=== PATIENT | male | born 1955 | race Caucasian/White ===

== ENCOUNTER → 2023-09-02 13:36 | Outpatient (REF) | payer BC, SELFPAY | LOC: RAD 13:36 | PROVIDERS: ATTENDING PHYSICIAN Specialist; FAMILY PHYSICIAN Internal Medicine | DX: M25.561 Pain in right knee (principal) | CPT/HCPCS: 73560; 73565 ==

== ENCOUNTER 2024-01-28 15:40 | Emergency (ER) | payer BC, SELFPAY ==
[2024-01-28 15:44] VITALS: BP 126/72
[2024-01-28 16:13] VITALS: BMI 24.8
[2024-01-28 16:14] LABS: % Basophils 0.7 % (0-2); % Eosinophils 0.4 % (0-6); % Immature Granulocytes 0.9 % (0-0.5); % Lymphocytes 10.6 % (20.5-51.1); % Monocytes 5.6 % (1.7-9.3); % Neutrophils 81.8 % (42.2-75.2); Absolute Basophils 0.1 10^3/uL (0-0.2); Absolute Immature Granulocytes 0.1 10^3/uL (0-0.05); Absolute Monocytes 0.5 10^3/uL (0.1-0.6); Absolute Neutrophils 7.5 10^3/uL (1.4-6.5); Hematocrit 47.7 % (39.0-52.0); Mean Corp Hgb Conc. 35.6 g/dL (33.0-37.0); Mean Corpuscular Hgb 30.5 pg (27.0-31.0); Mean Corpuscular Volume 85.6 fL (80.0-94.0); Mean Platelet Volume 8.6 fL (7.4-10.4); Nucleated Red Blood Cells % 0 % (-); Platelet Count 633 10^3/uL (130-400); Red Blood Cell Count 5.57 10^6/uL (4.70-6.10); Red Cell Dist. Width 12.8 % (11.5-14.5); White Blood Cell Count 9.2 10^3/uL (4.8-10.8)
[2024-01-28 16:16] VITALS: BP 126/79
[2024-01-28 16:17] VITALS: BP 126/79
[2024-01-28 16:26] LABS: ALT (SGPT) 35 U/L (0-50); AST (SGOT) 27 U/L (17-59); Albumin 4.4 g/dl (3.5-5.0); Alkaline Phosphatase 71 U/L (38-126); Blood Urea Nitrogen 22 mg/dl (9-20); Calcium 9.9 mg/dl (8.4-10.2); Carbon Dioxide 24 mmol/L (22-30); Chloride 107 mmol/L (98-107); Estimated Creatinine Clearance 50 ml/min; Glucose 125 mg/dl (70-99); Potassium 4.9 mmol/L (3.5-5.1); Sodium 138 mmol/L (135-145); Total Protein 6.9 g/dl (6.3-8.2); eGFR 49.77
[2024-01-28 16:33] LABS: Troponin I 0.014 ng/ml
[2024-01-28 17:16] VITALS: BP 124/81
--- NOTE | 2024-01-28 17:43 | ED.GENMED ---
History of Present Illness
General
Chief Complaint: Change Level of Consciousness
Source: patient and spouse
Exam Limitations: none
Time Seen by Provider: 01/28/24 16:33
Nursing documentation reviewed up to this point in time: agreed with
History of Present Illness
History of Present Illness:
Patient presents to ED secondary to sudden onset of generalized shaking, along with mental status change, while in sitting position, witnessed by his spouse. Per spouse, they had just returned from biking 8 miles. He had sat down on a couch with a
computer, when he made 'snorting' noise, followed by flaring of his arms and legs, and not responding to any family members. Shaking behavior lasted approximately 20 to 30 seconds, with spontaneous resolution. Afterwards, took another 2 minutes
before patient started to talk to his family. Patient however, at that time appeared pale and somewhat confused. Prior to aforementioned symptoms, patient does admit to feeling 'nauseous'. Otherwise, patient is healthy without any significant
medical history. Patient does not take any medications daily. Denies tongue biting or urinary/bowel incontinence. Denies recent illness. Denies recent change in diet. Denies recent weight loss. Patient does report eating breakfast and drinking
enough water during bike ride. Denies previous history of similar symptoms.
Past History
Past History
ED Past Medical History: None; Negative IDDM
ED Past Surgical History: Orthopedic (L3-L4 discectomy, knee surgeries) and Tonsilectomy; Negative Cardiac
Social History
Tobacco: Non-smoker
Alcohol: None
Drug: None
Personal:
Living: with family
Employment: Employed
Family History
Family History: Other (Noncontributory)
Review of Systems
Review of Systems
Allergies reviewed?: Yes
Constitutional: Reports no symptoms
EENT: Reports no symptoms
Respiratory: Reports no symptoms
Cardiac: Reports no symptoms
ABD/GI: Reports nausea
: Reports no symptoms
Musculoskeletal: Reports no symptoms
Skin: Reports no symptoms
Neurological: Reports other (Mental status change with seizure-like activity)
Phy Exam
Physical Exam
Physical Exam:
Physical Exam
General: no apparent distress, not acutely ill. afebrile
Head: nc/at. eomi
Neck: supple. no meningeal signs.
Heart: s1/s2 regular rate and rhythm, no murmur. equal radial pulses.
Lungs: no acute respiratory distress. clear bilaterally
Abdomen: normal bowel sounds. not tender.
Neuro: alert and oriented. no focal neurological deficits
Skin: no rash
Psychiatric: well kept. interactive and cooperative
Extremities: no edema. no calf tenderness.
Course
Orders/Labs/Results
Orders:
Orders
01/28/24 15:46
ECG [Electrocardiogram (*1)] Urgent
Reason for Study: Syncope
EKG- Treatment ONCE
01/28/24 15:58
Complete Blood Count/With Diff Urgent
Comprehensive Metabolic Panel Urgent
Troponin I Urgent
01/28/24 16:36
CT Head W/o Iv Contrast Urgent
Comment:
Reason For Exam: mental status change with sz like activity
Abnormal Lab Results
01/28/24
15:58
Plt Count 633 H 10^3/uL
(130-400)
Abs Immat Gran (auto) 0.1 H 10^3/uL
(0-0.05)
Absolute Neuts (auto) 7.5 H 10^3/uL
(1.4-6.5)
Absolute Lymphs (auto) 1.0 L 10^3/uL
(1.2-3.4)
Immature Gran % 0.9 H %
(0-0.5)
Neutrophils % 81.8 H %
(42.2-75.2)
Lymphocytes % 10.6 L %
(20.5-51.1)
BUN 22 H mg/dl
(9-20)
Creatinine 1.5 H mg/dL
(0.7-1.3)
Glucose 125 H mg/dl
(70-99)
01/28/24 15:58
01/28/24 15:58
Vital Signs
Initial and Last Documented VS:
Initial Vital Signs
Temp Pulse Resp BP Pulse Ox
98.1 F 74 16 126/72 95
01/28/24 15:44 01/28/24 15:44 01/28/24 15:44 01/28/24 15:44 01/28/24 15:44
Last Documented Vital Signs
Temp Pulse Resp BP Pulse Ox
98.1 F 62 18 116/74 97
01/28/24 15:44 01/28/24 18:39 01/28/24 18:39 01/28/24 18:38 01/28/24 18:38
MDM/Problems Addressed
MDM/Problems Addressed:
CT head: NAD.
History and exam concerning for potential new onset seizure. Discussed with on-call neurologist, Dr. Vivar. Does not recommend starting patient on any seizure medications at this time, as this is his first episode of seizure-like episode. In
addition, does not recommend suspending patient's driving license at this time. Feels that patient can be discharged home for an outpatient evaluation in his office. Advised patient to call neurology office on Tuesday, at which point outpatient EEG
and MRI brain will be arranged. Afterwards, patient will follow-up with Dr. Vivar or one of his colleagues for an outpatient consultation.
Patient and spouse expressed understanding at time of discharge.
*Critical Care Note
Total Time (30-74mins, 75-104mins- exclusive of procedures): Not Applicable
ED Attending Note
-
Portions of this chart may have been created with voice recognition software.� Occasional wrong word or��sound alike� substitutions may have occurred due to the inherent limitations of voice recognition software.
Discharge Plan
Departure
Patient Disposition: Home (Routine Discharge)
Date of Disposition: 01/28/24
Time of Disposition: 18:36
Patient with high blood pressure during this ER visit?: Yes
Condition: Fair
Discharge Problem:
Seizure
Instructions: Seizures, Adult ED
Prescriptions:
No Action
melatonin 10 MG capsule
10 mg PO HS
pentoxifylline 400 MG tablet extended release
400 mg PO PRN PRN (Reason: erectile dysfunction)
famotidine-Ca carb-mag hydrox [Pepcid Complete] 1 EACH tablet,chewable
1 ea PO PRN PRN (Reason: GERD)
Referrals:
Jax Vivar MD [Active] -
Tr Skaggs MD [Family Provider] -
Activity Restrictions/Additional Instructions:
As discussed, please follow-up with referred neurologist for further evaluation and treatment.
Interventions
Interventions:
*Risk Screen - Suicide Last Done: 01/28/24 16:17
*General Assessment Last Done: 01/28/24 16:17
*Neglect/Abuse Screening Last Done: 01/28/24 16:17
*ED COVID-19 Vaccine History Last Done: 01/28/24 16:17
*Nursing Disposition Last Done: 01/28/24 18:51
ED- Cardiac Assessment Last Done: 01/28/24 16:21
ED- Neurological Assessment Last Done: 01/28/24 16:21
ED-Psychological Assessment Last Done: 01/28/24 16:21
ED- Pulmonary Assessment Last Done: 01/28/24 16:21
Discharge Date and Time
Discharge Date/Time: 01/28/24 18:56
Print Language: TOGOLESE
[2024-01-28 18:00] VITALS: BP 103/62
[2024-01-28 18:38] VITALS: BP 116/74
== END 2024-01-28 18:56 | disposition home or self-care (01) ==
LOC: EMR 15:40
PROVIDERS: EMERGENCY PHYSICIAN Emergency Medicine; FAMILY PHYSICIAN Internal Medicine
DX: R56.9 Unspecified convulsions (principal)
CPT/HCPCS: 99284; 70450; 80053; 84484; 85025; 93005

== ENCOUNTER → 2024-02-03 08:47 | Outpatient (REF) | payer BC, SELFPAY ==
--- NOTE | 2024-02-03 11:09 | EEG.RPT ---
Electroencephalogram Report
Recording
Date of EE02/03/24
Type of EEG: Routine
Length of EEG recordin minutes
Done with Video Recording: Yes
Patient Status: Outpatient
Recording Conditions: Awake and Drowsy
Hyperventilation Performed: Yes
Photic Stimulation Performed: Yes
Report
LESS THAN 1 HOUR EEG REPORT
EEG INTERPRETATION:
Unremarkable EEG for age
CLINICAL CORRELATION:
A normal EEG does not rule out a diagnosis of epilepsy. If clinical suspicion for seizure persists, a prolonged recording may be warranted.
Clinical correlation is advised.
METHODS:
A 21 channel digitized electroencephalogram (EEG) was performed in the [facility]. The 10/20 international system of electrode placement was used with ECG and lateral/vertical eye movements recorded. Persyst quantitative EEG
analysis was performed.
ELECTROENCEPHALOGRAPHER IMPRESSION(S):
Quality of study
Good
Background
Unremarkable, well maintained, medium amplitude alpha-frequency and unremarkable anterior-posterior voltage gradient
With eye opening the background activity changed to a low voltage mixture of frequencies.
Sleep
Drowsiness present
Hyperventilation
Did not activate the record
Photic Stimulation
Did not activate the record
ECG
Normal sinus rhythm
== END ==
LOC: EEG 08:47
PROVIDERS: ATTENDING PHYSICIAN Internal Medicine
DX: R56.9 Unspecified convulsions (principal); R53.83 Other fatigue; R41.3 Other amnesia; N28.9 Disorder of kidney and ureter, unspecified
CPT/HCPCS: 95816

== ENCOUNTER → 2024-03-01 09:15 | Outpatient (REF) | payer BC, SELFPAY ==
--- NOTE | 2024-03-02 15:43 | EEG.RPT ---
Electroencephalogram Report
Recording
Date of EE03/01/24
Type of EEG: Ambulatory
Length of EEG recordin hours 4 minutes
Done with Video Recording: No
Patient Status: Outpatient
Recording Conditions: Awake, Drowsy and Asleep
Hyperventilation Performed: Yes
Photic Stimulation Performed: Yes
Report
24 HOUR AMBULATORY EEG SUMMARY
24 HOUR AMBULATORY EEG CONCLUSION(S):
Unremarkable EEG for age
CLINICAL CORRELATION:
A normal EEG may not rule out a diagnosis of epilepsy.
Consideration for multiple day monitoring may be given.
Clinical correlation is advised.
METHODS:
A 21 channel digitized electroencephalogram (EEG) was initiated in the [facility]. The patient wore the device outside of the laboratory and returned after 24 hours for electrode and recorder removal. The 10/20
international system of electrode placement was used with bipolar electrode montage recorded. ECG was monitored. The [employer] quantitative EEG analysis system was utilized.
IMPRESSION(S):
Quality
Fair becoming poor by end of study
Background
Maximal wakefulness: alpha
There was a normal anterior-posterior voltage gradient. With eye opening the background activity changed. No significant asymmetries of background activity noted.
Sleep
Drowsiness was suggested by slowing of the background rhythms
Stage I sleep was recorded
Stage 2 sleep was recorded
Hyperventilation
Failed to produce activation of the record
Photic stimulation
Failed to produce activation of the record
ECG
Unremarkable
== END ==
LOC: EEG 09:15
PROVIDERS: ATTENDING PHYSICIAN Psychiatry & Neurology Neurology; FAMILY PHYSICIAN Internal Medicine
DX: G40.309 Generalized idiopathic epilepsy and epileptic syndromes, not intractable, without status epilepticus (principal)
CPT/HCPCS: 95700; 95714

== ENCOUNTER → 2024-04-19 18:09 | Outpatient (REF) | payer BC, SELFPAY | LOC: MRI 3T 18:09 | PROVIDERS: ATTENDING PHYSICIAN Psychiatry & Neurology Neurology; FAMILY PHYSICIAN Internal Medicine | DX: G40.309 Generalized idiopathic epilepsy and epileptic syndromes, not intractable, without status epilepticus (principal); R56.9 Unspecified convulsions | CPT/HCPCS: 70553; A9575 ==

== ENCOUNTER → 2024-08-10 08:32 | Outpatient (REF) | payer BC, SELFPAY | LOC: MRI 3T 08:32 | PROVIDERS: ATTENDING PHYSICIAN Physician Assistant Medical; FAMILY PHYSICIAN Internal Medicine | DX: N40.1 Benign prostatic hyperplasia with lower urinary tract symptoms (principal); R39.12 Poor urinary stream; R97.20 Elevated prostate specific antigen [PSA] | CPT/HCPCS: 72197; A9575 ==

== ENCOUNTER 2025-04-12 06:12 | Day surgery (SDC) | payer BC, SELFPAY ==
[2025-02-11 07:11] LABS: Hematocrit 43.3 % (39.0-52.0); Hemoglobin 15.3 g/dL (13.0-18.0); Mean Corp Hgb Conc. 35.3 g/dL (33.0-37.0); Mean Corpuscular Volume 86.8 fL (80.0-94.0); Platelet Count 451 10^3/uL (130-400); Red Cell Dist. Width 13.0 % (11.5-14.5)
[2025-02-11 07:37] LABS: Blood Urea Nitrogen 20 mg/dl (9-20); Calcium 9.0 mg/dl (8.4-10.2); Carbon Dioxide 27 mmol/L (22-30); Chloride 109 mmol/L (98-107); Glucose 93 mg/dl (70-99); Potassium 4.4 mmol/L (3.5-5.1); Sodium 141 mmol/L (135-145); eGFR > 60.00
[2025-02-11 11:13] VITALS: BMI 24.5
[2025-04-12] VITALS (9 sets, daily range): BP systolic 124–151; BP diastolic 69–109; BMI 24.5
[2025-04-12] MEDS: TYLENOL 1000 MG PO (07:57)
[2025-04-12] MEDS: CELEBREX 200 MG PO (07:57)
[2025-04-12] MEDS: NORMOSOL-R/PLASMALYTE-A 1000 IV (08:08)
== END 2025-04-12 13:48 | disposition home or self-care (01) ==
LOC: SDS 06:12
PROVIDERS: ATTENDING PHYSICIAN Specialist; FAMILY PHYSICIAN Internal Medicine
DX: S46.219A Strain of muscle, fascia and tendon of other parts of biceps, unspecified arm, initial encounter (principal); X58.XXXA Exposure to other specified factors, initial encounter; M75.121 Complete rotator cuff tear or rupture of right shoulder, not specified as traumatic; M75.41 Impingement syndrome of right shoulder
CPT/HCPCS: 29827; 36415; 80048; 85027; 93005; C1713

== ENCOUNTER 2025-05-15 19:19 | Emergency (ER) | payer BC, SELFPAY ==
[2025-05-15 19:36] VITALS: BP 139/77
[2025-05-15 20:57] VITALS: BP 166/85
[2025-05-15 21:40] VITALS: BP 142/98
--- NOTE | 2025-05-15 22:14 | ED.GENMED ---
History of Present Illness
General
Chief Complaint: Fall
Source: patient
Exam Limitations: none
Time Seen by Provider: 05/15/25 21:42
History of Present Illness
History of Present Illness:
69yoM with a history of a recent right rotator cuff repair 4 weeks ago presenting with his for evaluation after a fall around 6:30 PM. He was walking his dog down an incline when he slipped on a muddy surface and fell backwards onto his
buttock. He injured his right ankle and right knee. His primary symptom is right knee pain which he describes as severe. He has had 4 prior surgeries to the right knee for meniscus injuries. He denies any head strike or loss of consciousness.
No headache, neck pain, back pain, shortness of breath. He does not take any blood thinners.
Past History
Past History
ED Past Medical History: None; Negative IDDM
ED Past Surgical History: Orthopedic (L3-L4 discectomy, knee surgeries) and Tonsilectomy; Negative Cardiac
Social History
Tobacco: Non-smoker
Alcohol: None
Drug: None
Personal:
Living: with family
Employment: Employed
Family History
Family History: Other (Noncontributory)
Phy Exam
General Physical Exam
General Presentation: well appearing and no apparent distress
General Skin: warm and dry
General Habitus: normal
General Mental: alert
ENT Exam
ENT Exam: normocephalic and other (No external signs of head trauma. No cervical spine tenderness.)
Eye Exam
Eye Exam: PERRL and conjunctiva normal
Pulmonary Exam
Pulmonary Exam: lungs clear, no respiratory distress, no rales, no crackles, no rhonchi and no wheezing
Neurological Exam
Neurological Exam: alert
Maybell Coma Scale
Eye Opening: Spontaneous
Verbal Response: Oriented
Motor Response: Obeys Commands
GCS Total Score: 15
Musculoskeletal Exam
Musculoskeletal Exam: full ROM (mild soft tissue swelling to R ankle. No tenderness to palpation. ROM intact. 2+ DP pulse.) and other (+Tenderness to medial joint line of R knee. Swelling noted without deformity or skin changes. ROM decreased 2/2
pain.)
Skin Exam
Skin Exam: normal color and warm/dry
Psychiatric Exam
Psychiatric Exam: normal mood/affect
Course
Orders/Labs/Results
Orders:
Orders
05/15/25 19:40
CR Ankle - Right Min 3 Views * Urgent
Comment:
Reason For Exam: fall injury pain
CR Knee- Right 4 Or More View* Urgent
Reason For Exam: fall injury pain
CR Shoulder, Trauma - Right Urgent
Comment:
Reason For Exam: fall injury pain
05/15/25 22:12
Knee Immobilizer Right-Treatme ONCE
Ketorolac [Toradol] 30 mg IM NOW STA
Oxycodone/Acetaminophen [Percocet 5/325] 1 tablet PO NOW STA
Vital Signs
Initial and Last Documented VS:
Initial Vital Signs
Temp Pulse Resp BP Pulse Ox
98.6 F 61 20 139/77 95
05/15/25 19:36 05/15/25 19:36 05/15/25 19:36 05/15/25 19:36 05/15/25 19:36
Last Documented Vital Signs
Temp Pulse Resp BP Pulse Ox
98.6 F 67 20 142/98 98
05/15/25 19:36 05/15/25 21:40 05/15/25 21:40 05/15/25 21:40 05/15/25 22:16
MDM/Problems Addressed
Differential Diagnosis Includes:
69yoM here with R knee and ankle pain after a mechanical fall this evening. Main complaint is R knee pain. Swelling noted without deformity. ROM decreased. RLE is neurovascularly intact. Differential diagnosis includes: fracture, dislocation,
ligamentous injury
X-rays of R shoulder, ankle, and knee obtained prior to initial exam. No fractures noted. Knee immobilizer ordered. He has crutches at home that he can use. He had a recent R rotator cuff repair and is still supposed to be in a sling. Patient not
interested in rehab placement at this time. Supportive care discussed and advised f/u with orthopedics. Prescription for oxycodone provided for breakthrough pain.
*Pulse Oximetry
SaO2: 98
Oxygen Mode of Delivery: Room air
Patient hypoxic: no
*Critical Care Note
Total Time (30-74mins, 75-104mins- exclusive of procedures): Not Applicable
ED Attending Note
-
Portions of this chart may have been created with voice recognition software.� Occasional wrong word or��sound alike� substitutions may have occurred due to the inherent limitations of voice recognition software.
Discharge Plan
Departure
Patient Disposition: Home (Routine Discharge)
Date of Disposition: 05/15/25
Time of Disposition: 22:16
Patient with high blood pressure during this ER visit?: Yes
Discharge Problem:
Ground-level fall, Right knee injury
Instructions: Preventing falls in adults, Knee pain - ED (DC)
Prescriptions:
New
oxycodone 5 mg tablet
5 mg PO Q6H PRN (Reason: Pain) Qty: 12 0RF
No Action
finasteride 5 mg Tablet
5 mg PO HS
tadalafil 5 mg Tablet
5 mg PO HS
mirabegron [Myrbetriq] 25 mg Tablet Extended Release 24 Hr
25 mg PO HS
ibuprofen 200 mg Tablet
400 mg PO Q6H PRN (Reason: pain)
Referrals:
Merrill Bishop MD [Active, Orthopedics]
Tr Skaggs MD [Family Provider, Internal Medicine]
Activity Restrictions/Additional Instructions:
Wear knee immobilizer for support. Elevate your leg and apply ice to help with swelling. Take Tylenol and ibuprofen as needed for pain. Take oxycodone only as needed for severe breakthrough pain.
Please follow-up with orthopedics. Return to the ER with any new or worsening symptoms.
Interventions
Interventions:
*Risk Screen - Suicide Last Done: 05/15/25 19:36
*General Assessment Last Done: 05/15/25 19:36
*Neglect/Abuse Screening Last Done: 05/15/25 22:21
*ED- Fall Risk Assessment Last Done: 05/15/25 20:53
*ED COVID-19 Vaccine History Last Done: 05/15/25 19:36
*ED Influenza Vaccine History Last Done: 05/15/25 19:36
*Nursing Disposition Last Done: 05/15/25 22:37
ED-Musculoskeletal Assessment Last Done: 05/15/25 20:57
ED- Neurological Assessment Last Done: 05/15/25 20:57
ED-Skin Assessment Last Done: 05/15/25 20:57
Discharge Date and Time
Discharge Date/Time: 05/15/25 22:38
Print Language: HUNGARIAN
[2025-05-15] MEDS: PERCOCET 5/325 1 TABLET PO (22:15)
[2025-05-15] MEDS: TORADOL 30 MG IM (22:16)
== END 2025-05-15 22:38 | disposition home or self-care (01) ==
LOC: EMR 19:19
PROVIDERS: EMERGENCY PHYSICIAN Emergency Medicine; FAMILY PHYSICIAN Internal Medicine
DX: S89.91XA Unspecified injury of right lower leg, initial encounter (principal); S49.91XA Unspecified injury of right shoulder and upper arm, initial encounter; W01.0XXA Fall on same level from slipping, tripping and stumbling without subsequent striking against object, initial encounter; Y93.01 Activity, walking, marching and hiking
CPT/HCPCS: 29505; 96372; 99284; 73030; 73564; 73610